=== PATIENT | female | born 1930 | race African-American/Black ===

== ENCOUNTER 2017-07-18 00:03 | Inpatient (IN) | payer MEDICARE, OTHER ==
[2017-07-18] VITALS (7 sets, daily range): BP systolic 93–125; BP diastolic 63–88
[~2017-07-18] VITALS: Ht 167.6 cm; Wt 44.5 kg
--- NOTE | 2017-07-18 00:16 | Emergency Room Report ---
History of Present Illness General Source: Medical Record, EMS Present Illness HPI Is an 87-year-old female with a history of dementia. She lives at home with home health nurse. She was presents with chief complaint of a fall and altered mental status. Onset today. Family member heard her thought the other room and found on the floor. Said that she been more confused than usual. She is also noncompliant with her medication. Family give her medication but then found them on the floor. Per EMS family was historian. Unable to get anything from the patient because of her dementia. She does know her name. Blood pressure was borderline low. Allergies: Coded Allergies: No Known Allergies (Unverified , 07/18/17) Patient History Past Medical History: see triage record, old chart reviewed Past Surgical History: other Pertinent Family History: none Social History: Denies: alcohol use Immunizations: other Reviewed Nursing Documentation: PMH: Agreed; PSxH: Agreed Review of Systems Constitutional: Reports: weakness Eye: Denies: eye pain, blurred vision ENT: Denies: ear pain, nose congestion, throat swelling Respiratory: Denies: cough, shortness of breath Cardiovascular: Denies: chest pain, palpitations Gastrointestinal: Denies: abdominal pain, diarrhea, nausea, vomiting Musculoskeletal: Denies: back pain, joint pain Skin: Denies: rash Neurological: Denies: headache, numbness Endocrine: Denies: increased thirst, increased urine Hematologic/Lymphatic: Denies: easy bruising All Other Systems: negative except mentioned in HPI Physical Exam vitals with borderline BP Sp02 EP Interpretation: reviewed, normal General Appearance: no apparent distress, alert, thin, Chronically Ill Head: normocephalic, atraumatic Eyes: bilateral eye PERRL, bilateral eye EOMI ENT: hearing grossly normal, dry mucus membranes Neck: full range of motion, supple, no meningismus Respiratory: chest non-tender, lungs clear, normal breath sounds Cardiovascular #1: regular rate, rhythm, no murmur Gastrointestinal: normal bowel sounds, non tender, no mass, no organomegaly, no bruit, non-distended Musculoskeletal: back normal, normal range of motion, swelling - 2+ pitting edema to lower extremities Psychiatric: depressed affect Skin: warm/dry Medical Decision Making Diagnostic Impression: Primary Impression: Altered level of consciousness Additional Impressions: Acute encephalopathy UTI (urinary tract infection) Qualified Codes: N30.00 - Acute cystitis without hematuria Acute prerenal azotemia Proteinuria Qualified Codes: R80.9 - Proteinuria, unspecified Anemia Qualified Codes: D64.9 - Anemia, unspecified Fall Qualified Codes: W19.XXXA - Unspecified fall, initial encounter ER Course Patient present with altered mental status. This may be secondary to her dementia. Could also be infectious cause from UTI. We will go ahead and put on antibiotics. No obvious intracranial bleed. EKG Diagnostic Results Rate: normal Rhythm: NSR ST Segments: other - NSST changes Rhythm Strip Diag. Results Rhythm Strip Time: 02:14 EP Interpretation: yes Rate: 70 Rhythm: NSR, no PVC's, no ectopy Chest X-Ray Diagnostic Results Chest X-Ray Diagnostic Results : Chest X-Ray Ordered: Yes # of Views/Limited/Complete: 1 View Indication: Other EP Interpretation: Yes Interpretation: no consolidation, no effusion, no pneumothorax, no acute cardiopulmonary disease Impression: No acute disease Electronically Signed by: Robin Latham MD CT/MRI/US Diagnostic Results CT/MRI/US Diagnostic Results : Imaging Test Ordered: Ct head Impression Read by radiologist. No acute findings. Status: unchanged Disposition: ADMITTED INPATIENT Condition: Serious ROBIN LATHAM M.D. Jul 18, 2017 00:16
[2017-07-18] MEDS ORDERED: ASPIR 8181 MG ORAL (00:25)
[2017-07-18] MEDS ORDERED: ISOSORBIDE DINI20 M2 PO (00:25)
[2017-07-18] MEDS ORDERED: ALBUTEROL2.5 MG/3 M INH (00:25)
[2017-07-18] MEDS ORDERED: METOPROLOL SUC100 MG ORAL (00:25)
[2017-07-18] MEDS ORDERED: NITROGLYCERIN0.4 MG SL (00:25)
[2017-07-18] MEDS ORDERED: LOVASTATIN10 MG ORAL (00:25)
[2017-07-18 00:32] LABS: BASOPHILS % (AUTO) 1.4 % (0.0-2.0); EOSINOPHILS % (AUTO) 1.1 % (0.0-3.0); HEMATOCRIT 35.3 % (42.0-52.0); HEMOGLOBIN 11.7 G/DL (14.2-18.0); LYMPHOCYTES % (AUTO) 30.5 % (20.0-45.0); MEAN CORPUSCULAR VOLUME 98 FL (80-99); MONOCYTES % (AUTO) 14.1 % (1.0-10.0); NEUTROPHILS % (AUTO) 52.9 % (45.0-75.0); PLATELET COUNT 146 K/UL (150-450); WHITE BLOOD COUNT 3.7 K/UL (4.8-10.8)
[2017-07-18 00:47] LABS: ANION GAP -1 mmol/L (5-15); BLOOD UREA NITROGEN 19 mg/dL (7-18); CALCIUM 8.7 MG/DL (8.5-10.1); CARBON DIOXIDE 33 MMOL/L (21-32); CHLORIDE 106 MMOL/L (98-107); CREATININE 0.8 MG/DL (0.55-1.30); POTASSIUM 4.9 MMOL/L (3.5-5.1); SODIUM 138 MMOL/L (136-145)
[2017-07-18 00:50] LABS: INR 1.1 (0.9-1.1)
[2017-07-18 01:01] LABS: ALANINE AMINOTRANSFERASE 37 U/L (12-78); ALBUMIN/GLOBULIN RATIO 0.9 (1.0-2.7); ALKALINE PHOSPHATASE 116 U/L (46-116); ASPARTATE AMINO TRANSFERASE 54 U/L (15-37); CKMB 0.9 NG/ML (0.0-3.6); CREATINE KINASE 63 U/L (26-308)
[2017-07-18 01:16] LABS: APPEARANCE,URINE CLEAR; BILIRUBIN, URINE NEGATIVE (NEGATIVE); GLUCOSE, URINE (UA) NEGATIVE (NEGATIVE); KETONES,URINE NEGATIVE (NEGATIVE); LEUKOCYTE ESTERASE ,URINE 1+ (NEGATIVE); NITRITE,URINE NEGATIVE (NEGATIVE); PH,URINE 7 (4.5-8.0); PROTEIN,URINE 2+ (NEGATIVE); UROBILINOGEN,URINE 4 MG/DL (0.0-1.0)
[2017-07-18 01:21] LABS: COLOR,URINE YELLOW
[2017-07-18] MEDS ORDERED: cefTRIAXone 1 GM in NS 55 ML IVPB ONE (01:30)
[2017-07-18] MEDS ORDERED: Milk of Magnesia 30ml Ud ORAL PRN (05:15)
[2017-07-18] MEDS: Heparin 5000 units/ml inj SUBQ SCH ×2 (09:00→20:30)
[2017-07-18] MEDS: Cefepime HCl 1 GM in D5W 55 ML IVPB SCH ×2 (09:11→20:12)
[2017-07-18 10:08] LABS: BASOPHILS % (AUTO) 1.2 % (0.0-2.0); EOSINOPHILS % (AUTO) 1.2 % (0.0-3.0); HEMATOCRIT 33.6 % (37.0-47.0); HEMOGLOBIN 10.7 G/DL (12.0-16.0); LYMPHOCYTES % (AUTO) 22.8 % (20.0-45.0); MEAN CORPUSCULAR VOLUME 100 FL (80-99); MONOCYTES % (AUTO) 15.6 % (1.0-10.0); NEUTROPHILS % (AUTO) 59.2 % (45.0-75.0); PLATELET COUNT 137 K/UL (150-450); RED BLOOD COUNT 3.36 M/UL (4.20-5.40); RED CELL DISTRIBUTION WIDTH 15.1 % (11.6-14.8); WHITE BLOOD COUNT 4.5 K/UL (4.8-10.8)
[2017-07-18 10:14] LABS: ANION GAP 2 mmol/L (5-15); BLOOD UREA NITROGEN 17 mg/dL (7-18); CALCIUM 8.1 MG/DL (8.5-10.1); CARBON DIOXIDE 29 MMOL/L (21-32); CHLORIDE 109 MMOL/L (98-107); CREATININE 0.7 MG/DL (0.55-1.30); POTASSIUM 3.7 MMOL/L (3.5-5.1); SODIUM 140 MMOL/L (136-145)
--- NOTE | 2017-07-18 10:38 | Diagnostic Imaging Report ---
Indication: Altered mental status, trauma Technique: Continuous helical CT scanning of the head was performed utilizing automated exposure control without intravenous contrast material. Axial and coronal reconstructions were obtained. Comparison: None CT dose: Total DLP 1485 mGycm; CTDI vol 70.5 mGy Findings: There is a 6 mm round focus of high attenuation in the left parietal lobe (series 2 image #21). There is no significant surrounding edema or mass effect. No shift the midline structures. No CT evidence to suggest acute large territorial infarct. The ventricles, cisterns and sulci are prominent, consistent with atrophy. Periventricular hypoattenuation is seen, a nonspecific finding most commonly related to sequela of chronic microvascular ischemia. Atherosclerotic vascular calcifications are noted. Visualized mastoid air cells and paranasal sinuses are unremarkable. No focal lesions of the bony calvarium or soft tissues of the scalp are seen. IMPRESSION: 6 mm focus of hyperattenuation in the left parietal lobe. Potential considerations include small area of parenchymal hemorrhage versus partially calcified lesion related to prior inflammation/infection. Short-term interval follow-up head CT recommended to ensure stability. Eventual MRI without and with contrast would be helpful for better characterization. Atrophy and nonspecific periventricular hypoattenuation suggestive of chronic ischemic microvascular changes. This corresponds with the statrad preliminary report will slight variation in terms of recommended follow-up imaging. Findings an follow-up imaging recommendations discussed with the patient's treating nurse. Message left for treating physician Dr. Aquino. The CT scanner at [facility] is accredited by the [employer] and the scans are performed using protocols designed to limit radiation exposure to as low as reasonably achievable to attain images of sufficient resolution adequate for diagnostic evaluation.
--- NOTE | 2017-07-18 10:44 | Diagnostic Imaging Report ---
Indication: Shortness of breath Technique: XRAY Chest 1v Comparison: None Findings: Heart is enlarged. Likely aneurysmal dilatation and tortuosity of the thoracic aorta. There is elevation of the left hemidiaphragm. There is blunting of the right costophrenic sulcus which may be chronic however trace pleural effusion not excluded. No pneumothorax. No acute osseous abnormality. IMPRESSION: Cardiomegaly. Question aneurysmal dilatation of a tortuous thoracic aorta. Further evaluation with CT of the chest can be obtained as clinically indicated. Blunting of the right costophrenic sulcus may be chronic however small pleural effusion not excluded.
--- NOTE | 2017-07-18 15:04 | History & Physical ---
History and Physical History & Physicial 87-year-old female with a history of dementia. She lives at home with home health nurse. She was presents with chief complaint of a fall and altered mental status. Onset today. Family member that she been more confused than usual. She is also noncompliant with history taking. She does know her name. Blood pressure was borderline low. Allergies: No Known Allergies (Unverified , 07/18/17) Past Medical History: demential Past Surgical History: unable Pertinent Family History: unable Social History: lives with family Reviewed of systems: unable Physical WDWN NAD confused and nonverbale clear breath sounds bilaterally without rhonchi or wheeze [id number] without MRG NABS nontender no HSM no CCE reduced ROM Labs Test 07/18/17 00:20 07/18/17 01:05 07/18/17 09:40 White Blood Count 3.7 K/UL (4.8-10.8) 4.5 K/UL (4.8-10.8) Red Blood Count 3.60 M/UL (4.70-6.10) 3.36 M/UL (4.20-5.40) Hemoglobin 11.7 G/DL (14.2-18.0) 10.7 G/DL (12.0-16.0) Hematocrit 35.3 % (42.0-52.0) 33.6 % (37.0-47.0) Mean Corpuscular Volume 98 FL (80-99) 100 FL (80-99) Mean Corpuscular Hemoglobin 32.5 PG (27.0-31.0) 31.9 PG (27.0-31.0) Mean Corpuscular Hemoglobin Concent 33.1 G/DL (32.0-36.0) 31.8 G/DL (32.0-36.0) Red Cell Distribution Width 15.0 % (11.6-14.8) 15.1 % (11.6-14.8) Platelet Count 146 K/UL (150-450) 137 K/UL (150-450) Mean Platelet Volume 8.2 FL (6.5-10.1) 7.5 FL (6.5-10.1) Neutrophils (%) (Auto) 52.9 % (45.0-75.0) 59.2 % (45.0-75.0) Lymphocytes (%) (Auto) 30.5 % (20.0-45.0) 22.8 % (20.0-45.0) Monocytes (%) (Auto) 14.1 % (1.0-10.0) 15.6 % (1.0-10.0) Eosinophils (%) (Auto) 1.1 % (0.0-3.0) 1.2 % (0.0-3.0) Basophils (%) (Auto) 1.4 % (0.0-2.0) 1.2 % (0.0-2.0) Prothrombin Time 11.8 SEC (9.30-11.50) Prothromb Time International Ratio 1.1 (0.9-1.1) Activated Partial Thromboplast Time 26 SEC (23-33) Sodium Level 138 MMOL/L (136-145) 140 MMOL/L (136-145) Potassium Level 4.9 MMOL/L (3.5-5.1) 3.7 MMOL/L (3.5-5.1) Chloride Level 106 MMOL/L (98-107) 109 MMOL/L (98-107) Carbon Dioxide Level 33 MMOL/L (21-32) 29 MMOL/L (21-32) Anion Gap -1 mmol/L (5-15) 2 mmol/L (5-15) Blood Urea Nitrogen 19 mg/dL (7-18) 17 mg/dL (7-18) Creatinine 0.8 MG/DL (0.55-1.30) 0.7 MG/DL (0.55-1.30) Estimat Glomerular Filtration Rate mL/min (>60) mL/min (>60) Glucose Level 114 MG/DL (74-106) 77 MG/DL (74-106) Lactic Acid Level 1.30 mmol/L (0.66-2.22) Calcium Level 8.7 MG/DL (8.5-10.1) 8.1 MG/DL (8.5-10.1) Total Bilirubin 1.0 MG/DL (0.2-1.0) Aspartate Amino Transf (AST/SGOT) 54 U/L (15-37) Alanine Aminotransferase (ALT/SGPT) 37 U/L (12-78) Alkaline Phosphatase 116 U/L (46-116) Total Creatine Kinase 63 U/L (26-308) Creatine Kinase MB 0.9 NG/ML (0.0-3.6) Creatine Kinase MB Relative Index 1.4 Troponin I 0.002 ng/mL (0.000-0.056) Total Protein 6.2 G/DL (6.4-8.2) Albumin 3.0 G/DL (3.4-5.0) Globulin 3.2 g/dL Albumin/Globulin Ratio 0.9 (1.0-2.7) Urine Color Yellow Urine Appearance Clear Urine pH 7 (4.5-8.0) Urine Specific [place] 1.010 (1.005-1.035) Urine Protein 2+ (NEGATIVE) Urine Glucose (UA) Negative (NEGATIVE) Urine Ketones Negative (NEGATIVE) Urine Occult Blood 1+ (NEGATIVE) Urine Nitrite Negative (NEGATIVE) Urine Bilirubin Negative (NEGATIVE) Urine Urobilinogen 4 MG/DL (0.0-1.0) Urine Leukocyte Esterase 1+ (NEGATIVE) Urine RBC 0-2 /HPF (0 - 0) Urine WBC 5-10 /HPF (0 - 0) Urine Squamous Epithelial Cells None /LPF (NONE/OCC) Urine Bacteria Few /HPF (NONE) IMPRESSION UTI possible advance dementia disabled PLAN IV hydration IV antibiotics d/w family dc once stable may need placement total care KAREN BANDA Jul 18, 2017 15:04
--- NOTE | 2017-07-18 18:43 | Diagnostic Imaging Report ---
Indication: Altered mental status, trauma Technique: Continuous helical CT scanning of the head was performed utilizing automated exposure control without intravenous contrast material. Axial and coronal reconstructions were obtained. Comparison: 07/18/2017, 00:50 CT dose: Total DLP 1376.09 mGycm; CTDI vol 70.38 mGy Findings: 6 mm focus of high attenuation in the left parietal lobe (series 3 image #20) is stable in size. There is no significant surrounding edema or mass effect. No shift the midline structures. No CT evidence to suggest acute large territorial infarct. The ventricles, cisterns and sulci are prominent, consistent with atrophy. Periventricular hypoattenuation is seen, a nonspecific finding most commonly related to sequela of chronic microvascular ischemia. Atherosclerotic vascular calcifications are noted. Visualized mastoid air cells and paranasal sinuses are unremarkable. No focal lesions of the bony calvarium or soft tissues of the scalp are seen. IMPRESSION: No significant interval change from exam approximately 13 hours prior. 6 mm focus of hyperattenuation in the left parietal lobe is stable. Again, potential considerations include small area of parenchymal hemorrhage versus partially calcified lesion related to prior inflammation/infection. Eventual MRI without and with contrast would be helpful for better characterization. Atrophy and nonspecific periventricular hypoattenuation suggestive of chronic ischemic microvascular changes. The CT scanner at [facility] is accredited by the [employer] and the scans are performed using protocols designed to limit radiation exposure to as low as reasonably achievable to attain images of sufficient resolution adequate for diagnostic evaluation.
--- NOTE | 2017-07-18 18:45 | Consultation ---
DATE OF CONSULTATION: 07/18/2017 INFECTIOUS DISEASE CONSULTATION CONSULTING PHYSICIAN: Dank Maza M.D. REFERRING PHYSICIAN: Alexy Aquino M.D. REASON FOR CONSULTATION: Altered mental status and urinary tract infection. HISTORY OF PRESENTING ILLNESS: This is an 87-year-old lady with history of dementia, who came in with altered mental status. She was found to have a urinary tract infection and an Infectious Diseases consultation has been obtained for antibiotics. PAST MEDICAL HISTORY: Dementia noted. MEDICATIONS: As an inpatient, the patient is on cefepime, subcutaneous heparin, Protonix, Tylenol, Mylanta, and milk of magnesia. ALLERGIES: No known drug allergies. SOCIAL HISTORY: Unknown. FAMILY HISTORY: Unknown. REVIEW OF SYSTEMS: Unable to obtain currently. PHYSICAL EXAMINATION: VITAL SIGNS: Temperature of 97 degrees, T-max of 97.2 degrees, pulse of 61, respiratory rate 20, blood pressure 125/88 and O2 saturation of 94%. HEENT: Pupils are equally reactive to light and accommodation. Mouth appears clean without thrush. NECK: Supple. No adenopathy. No JVD. CARDIOVASCULAR: Regular rate and rhythm. No murmurs. LUNGS: Clear to auscultation bilaterally. No crackles. No wheezes. ABDOMEN: Soft and nontender. No organomegaly. EXTREMITIES: No cyanosis, no clubbing, and no edema. LABORATORY AND DIAGNOSTIC DATA: White count of 4.5, hemoglobin 10.7, hematocrit 33.6, MCV 100 and platelet count of 137, neutrophils of 59%. Sodium 140, potassium 3.7, chloride 109, bicarbonate 29, BUN 17, creatinine 0.7 glucose 77, and calcium 8.1. Total bilirubin 1. AST 54, ALT 37, and alkaline phosphatase 116. CK of 63. CK-MB of 0.9. Troponin 0.002. Total protein 6.2. Albumin of 3. UA showing 5-[address] head showing left parietal lobe hyperattenuation, small area parenchymal hemorrhage noted, atrophy and nonspecific periventricular hypoattenuation suggestive of chronic ischemic microvascular changes. ASSESSMENT: 1. This is an 87-year-old lady with history of dementia, who comes in with altered mental status and is found to have a urinary tract infection. 2. Dementia. PLAN: 1. Continue cefepime. 2. We will order urine cultures. 3. We will follow up cultures and adjust antibiotics accordingly. I would like to thank, Dr. Aquino, for this consultation. Dank Maza M.D. DR: JEVON JOB#: [id number] CC: Alexy Aquino M.D.; Fax#: [phone]
[2017-07-19] VITALS: BP 109/83
[2017-07-19 04:00] VITALS: BP 112/80
[2017-07-19 08:00] VITALS: BP 117/79
[2017-07-19] MEDS: Heparin 5000 units/ml inj SUBQ SCH (09:00)
--- NOTE | 2017-07-19 09:08 | General Progress Note ---
Assessment/Plan Assessment/Plan IMPRESSION UTI thus far negative advance dementia disabled PLAN dc hydration dc iv antibotics levaquin total care Subjective Allergies: Coded Allergies: No Known Allergies (Unverified , 07/18/17) Subjective wants to go home Objective Last 24 Hour Vital Signs Date Time Temp Pulse Resp B/P (MAP) Pulse Ox O2 Delivery O2 Flow Rate FiO2 07/19/17 08:00 98.0 65 20 117/79 95 98.0 07/19/17 04:00 96.6 68 20 112/80 95 Room Air 96.6 07/19/17 00:00 97.2 58 20 109/83 100 Room Air 97.2 07/18/17 20:00 97.0 88 20 117/85 100 Room Air 97.0 07/18/17 16:00 97.0 57 16 103/73 94 97.0 07/18/17 12:00 97.3 62 16 119/71 97 Nasal Cannula 2.0 97.3 Intake and Output 07/18/17 07/19/17 19:00 07:00 Intake Total 1230 ml 355 ml Balance 1230 ml 355 ml Intake Oral 120 ml IV Total 1110 ml 355 ml # Voids 1 1 Laboratory Tests 07/18/17 09:40: White Blood Count 4.5L, Red Blood Count 3.36L, Hemoglobin 10.7L, Hematocrit 33.6L, Mean Corpuscular Volume 100H, Mean Corpuscular Hemoglobin 31.9H, Mean Corpuscular Hemoglobin Concent 31.8L, Red Cell Distribution Width 15.1H, Platelet Count 137L, Mean Platelet Volume 7.5, Neutrophils (%) (Auto) 59.2, Lymphocytes (%) (Auto) 22.8, Monocytes (%) (Auto) 15.6H, Eosinophils (%) (Auto) 1.2, Basophils (%) (Auto) 1.2, Sodium Level 140, Potassium Level 3.7, Chloride Level 109H, Carbon Dioxide Level 29, Anion Gap 2L, Blood Urea Nitrogen 17, Creatinine 0.7, Estimat Glomerular Filtration Rate , Glucose Level 77, Calcium Level 8.1L Height (Feet): 5 Height (Inches): 6.00 Weight (Pounds): 98 Objective WDWN NAD clear breath sounds bilaterally without rhonchi or wheeze [id number] without MRG NABS nontender no HSM confused ISHAAYA,KAREN Jul 19, 2017 09:08
[2017-07-19] MEDS ORDERED: Levofloxacin 500mg tab ORAL ONE (10:00)
--- NOTE | 2017-07-19 10:44 | Infectious Diseases Prog Note ---
Assessment/Plan Assessment/Plan antibiotics : cefepime A 1. UTI 2. dementia P 1. cefepime d/c, no iv access 2. levoquin po started 3. will follow up cultures Subjective Constitutional: Denies: fever, chills Respiratory: Reports: dry cough; Denies: shortness of breath Gastrointestinal/Abdominal: Denies: nausea, vomiting, diarrhea Musculoskeletal: Denies: pain Allergies: Coded Allergies: No Known Allergies (Unverified , 07/18/17) Objective Vital Signs Last 24 Hour Vital Signs Date Time Temp Pulse Resp B/P (MAP) Pulse Ox O2 Delivery O2 Flow Rate FiO2 07/19/17 08:00 98.0 65 20 117/79 95 98.0 07/19/17 04:00 96.6 68 20 112/80 95 Room Air 96.6 07/19/17 00:00 97.2 58 20 109/83 100 Room Air 97.2 07/18/17 20:00 97.0 88 20 117/85 100 Room Air 97.0 07/18/17 16:00 97.0 57 16 103/73 94 97.0 07/18/17 12:00 97.3 62 16 119/71 97 Nasal Cannula 2.0 97.3 Height (Feet): 5 Height (Inches): 6.00 Weight (Pounds): 98 Respiratory/Chest: lungs clear Cardiovascular: normal rate, regular rhythm, no gallop/murmur Abdomen: soft, non tender Extremities: no edema Microbiology Date/Time Source Procedure Growth Status 07/18/17 00:20 Blood Blood Culture - Preliminary NO GROWTH AFTER 24 HOURS Resulted 07/18/17 00:05 Blood Blood Culture - Preliminary NO GROWTH AFTER 24 HOURS Resulted Current Medications Medications (Trade) Dose Ordered Sig/Jj Route PRN Reason Start Time Stop Time Status Last Admin Dose Admin Acetaminophen (Tylenol) 650 mg Q4H PRN ORAL Mild Pain/Temp > 100.5 07/18/17 05:15 08/17/17 05:14 Al Hydroxide/Mg Hydroxide (Mylanta) 30 ml Q4H PRN ORAL Nausea & Vomiting 07/18/17 05:15 08/17/17 05:14 Heparin Sodium (Porcine) (Heparin 5000 units/ml) 5,000 units EVERY 12 HOURS SUBQ 07/18/17 09:00 08/17/17 08:59 Levofloxacin (Levaquin) 250 mg DAILY@1000 ORAL 07/20/17 10:00 07/27/17 09:59 Magnesium Hydroxide (Mom) 30 ml DAILYPRN PRN ORAL Constipation 07/18/17 05:15 08/17/17 05:14 Pantoprazole (Protonix) 40 mg BEFORE BREAKFAST ORAL 07/18/17 06:30 08/17/17 06:29 07/18/17 06:12 FERNANDO CORNELIUS Jul 19, 2017 10:44
[2017-07-19 12:00] VITALS: BP 110/76
[2017-07-19] MEDS ORDERED: Tubing IV Secondary IV ONE (15:36)
[2017-07-19] MEDS ORDERED: NS 275ml ONE (15:36)
--- NOTE | 2017-07-22 15:15 | Discharge Summary ---
Discharge Summary Hospital Course Date of Admission Jul 18, 2017 at 01:57 Date of Discharge Jul 19, 2017 at 17:09 Admitting Diagnosis ENCEPHALOPATHY,UTI HPI Genesis Fuentes is a 87 year old female who was admitted on Jul 18, 2017 at 01:57 for Encephalopathy/Urinary Tract Infection Hospital Course [id number] Discharge Discharge Disposition Patient was discharged to Home () Bri Taylor NP Jul 22, 2017 15:15
--- NOTE | 2017-07-22 21:45 | Discharge Summary 2 SIG ---
DATE OF ADMISSION: 07/18/2017 DATE OF DISCHARGE: 07/19/2017 SEED ANALYST: Dank Maza M.D. BRIEF HOSPITAL COURSE: The patient is an 87-year-old female with history of dementia who lives at home with home-health. She presented with chief complaint of fall and altered mental status. Family member noticed the patient was more confused than usual. She was also noncompliant with medications. The patient has underlying dementia. On evaluation at ED, blood pressure was 98/80. She was saturating 86% on room air. Chest x-ray done showed no acute disease. CT of the head showed no acute findings. She was normal sinus on EKG. Blood work showed no leukocytosis. She was given empirically antibiotics. She was admitted for evaluation of acute encephalopathy. She was continued on cefepime. Blood culture did not isolate any growth. Urine culture with VRE. She had a repeat CT scan that showed no significant interval change. A 6 mm focus of hyperattenuation in the left parietal lobe was stable. She was provided a sitter for the patient's safety and was placed on neuro-check. She had no IV access. Cefepime was discontinued and was switched to levofloxacin p.o. Social service home evaluation was done. Due to rapid improvement in the patient's symptoms and negative workup, the patient was eventually discharged home. FINAL DIAGNOSES: 1. Acute encephalopathy, possibly due to advanced dementia. 2. Urinary tract infection. 3. Disabled. DISPOSITION: The patient was discharged home with home health. DISCHARGE MEDICATIONS: Refer to medication list. DISCHARGE INSTRUCTIONS: Follow up with PCP in a week. Alexy Aquino M.D. I have been assigned to dictate discharge summary on this account and I was not involved in the patient's management. Bri Taylor N.P. DR: LAURA JOB#: [id number] CC:
== END 2017-07-19 17:09 | disposition home or self-care (01) | DRG 71 ==
LOC: EDBD 00:03 → EMR 00:15 → EDSEX 01:57 → 4E 01:57 → EDBEDREQ 02:07 → 4E 04:22
DX: G93.40 Encephalopathy, unspecified (principal); N39.0 Urinary tract infection, site not specified; F03.90 Unspecified dementia, unspecified severity, without behavioral disturbance, psychotic disturbance, mood disturbance, and anxiety; Z91.81 History of falling; Z91.14 Patient's other noncompliance with medication regimen
CPT/HCPCS: 36415; 70450; 71045; 80048; 80053; 81003; 82550; 82553; 83605; 84484; 85025; 85610; 85730; 87040; 87081; 87086; 87181; 93005; 99285